=== PATIENT | female | born 1980 | race Caucasian/White ===

== ENCOUNTER 2017-11-05 19:42 | Observation (INO) ==
[2017-11-05 20:07] LABS: Bilirubin,Urine Negative (Negative); Blood,Urine Large (Negative); Clarity,Urine Turbid (Clear); Color,Urine Amber (Yellow); Glucose,Urine (UA) Normal (Normal); Ketones,Urine Negative (Negative); Leukocyte Esterase,Urine Moderate (Negative); Nitrite,Urine Positive (Negative); Protein,Urine >=300 mg/dL (Neg-Trace); Specific Gravity,Urine 1.025 (1.010-1.025); Urobilinogen,Urine Normal (Normal)
[2017-11-05] MEDS ORDERED: Ondansetron 4 MG/2 ML VIAL IVP ONE (20:14)
[2017-11-05] MEDS ORDERED: *HR* FentaNYL (PF) 100 MCG/2 ML VIAL IVP ONE (20:14)
[2017-11-05] MEDS ORDERED: Ketorolac 15 MG/ML VIAL IVP ONE (20:14)
[2017-11-05] MEDS ORDERED: 0.9 % Sodium Chloride 1,000 ML IVC ONE (20:14)
--- NOTE | 2017-11-05 20:15 | Emergency Department Note ---
Disposition Clinical Impression: Hepatic steatosis, Acute pyelonephritis, Right ovarian cyst Diabetes Qualifiers: Diabetes mellitus type: type 2 Diabetes mellitus detention insulin use: unspecified detention insulin use status Diabetes mellitus complication status: with unspecified complications Qualified Code(s): E11.8 - Type 2 diabetes mellitus with unspecified complications Sepsis Qualifiers: Sepsis type: sepsis due to unspecified organism Qualified Code(s): A41.9 - Sepsis, unspecified organism Disposition: Admitted As Inpatient Condition: Fair Referrals: Mary Rodriguez CNP [Primary Care Provider] - Nhung Mccartney [Family Provider] - Forms: ED Satisfaction Letter, Work/School Release Time of Disposition: 22:23 Abdominal Pain HPI - General Chief Complaint: ED Abdominal Pain Stated Complaint: lower back and pelvic pain Time Seen by Provider: 11/05/17 19:49 Source: patient Nursing Notes Reviewed: Yes Vital Signs Reviewed: Yes - History of Present Illness HPI Narrative: 36-year-old female history of ofr-rlnaxbs-vdyobmgwe diabetes, presents with 1 day of left flank pain radiating to her groin. Patient also has pelvic pain and dysuria. She denies vaginal bleeding or discharge, she did recently have her period. States that she has had some low-grade fevers as well, she just felt hot and sweaty. Patient denies measurable temperatures, she has had previous urinary tract infections but she denies history of kidney infections. She has mild right upper quadrant tenderness as well that started 10, left flank pain is 6 out of 10. Crampy achy in quality. Pt Subjective Complaint: abdominal pain Location: L flank Pain Severity: moderate Pain Scale: 10 Quality: cramping, aching Radiation: suprapubic Worsens with: nothing Associated symptoms: Reports: nausea, fever, dysuria. Denies: vomiting, diarrhea, chills, hematemesis, hematochezia - Related Data Home Medications Medication Instructions Recorded Confirmed Alogliptin 06/26/17 Buspirone HCl 06/26/17 Celebrex 06/26/17 Gabapentin Enacarbil 06/26/17 Nuvigil 06/26/17 Ranitidine HCl 06/26/17 metFORMIN 06/26/17 Previous Rx's Medication Instructions Recorded GuaiFENesin/Dextromethorphan 5 ml PO Q6HR PRN #120 syrup 06/26/17 [Robitussin/DM] Loratadine/Pseudophed (12 HR) 1 each PO BID #20 tab.er.12h 06/26/17 [Claritin D (12HR)] Amoxicillin [Amoxil] 500 mg PO TID #30 capsule 10/06/17 Magic Mouthwash [Magic Mouthwash 10 ml PO QID #240 ml 10/06/17 BLM] PredniSONE [Deltasone] 20 mg PO DAILY #12 tablet 10/06/17 Allergies Allergy/AdvReac Type Severity Reaction Status Date / Time No Known Allergies Allergy Verified 11/05/17 19:45 All systems ED: reviewed and negative except as stated. Review of Systems: As Per HPI Constitutional: Reports: fever. Denies: chills Eyes: Denies: eye pain ENT ED: Denies: ear pain Cardiovascular: Denies: chest pain Respiratory: Denies: cough, dyspnea Gastrointestinal: Reports: as per HPI, abdominal pain, nausea. Denies: vomiting Genitourinary: Reports: as per HPI, urgency, dysuria Musculoskeletal: Denies: back pain Integumentary: Denies: rash Neurological: Denies: headache Psychiatric: Denies: anxiety Abdominal Pain PMH - Past Medical History Medical history: Reports: diabetes, hyperlipidemia, kidney stones Female Surgical History: Reports: , other Psychiatric history: Reports: no psych history - Social History Smoking status: Former smoker Alcohol use: Reports: none Drug use: Reports: none Physical Exam Constitutional: alert and oriented, in NAD, vital signs reviewed and wnl HEENT: NCAT, sclera anicteric Neck: normal inspection, neck is supple, trachea midline Resp: normal chest inspection, CTA bilaterally, no resp distress CV: RRR, no m/g/r GI: normal inspection, Soft, mild suprapubic tenderness palpation, mild tenderness to palpation right upper quadrant negative [place] sign no guarding or rebound. Back: normal inspection, positive left CVA ttp, no tenderness to palpation Neuro: A&O3, no gross motor or sensory deficits bilaterally MSK: normal inspection, bilateral UE and LE with normal ROM Skin: No rashes, skin warm, dry, intact - General Limitations: no limitations General appearance: alert Course Course Narrative: 36-year-old female with possible pyelonephritis, given her clinical exam and cloudy urine checking renal function, also in the CT scan of her abdomen pelvis check basic labs given her liter fluid, also plan to consider admission versus discharge based on laboratory results shows no evidence of kidney failure, she is high risk given - Reevaluation(s) Reevaluation #1: Patient with evidence pyelonephritis, technically septic given that she has tachycardia, elevated white blood cell count, source of infection, treated with Levaquin IV, patient he will blood cultures and lactate as well, admission to Dr. Moran the hospitalist, for further workup and treatment given diabetes high risk factors including evidence of sepsis pyelonephritis she is hemodynamic stable with no hypotension at this time. Time: 22:22 Vital Signs Temperature 98.2 F 11/05/17 19:45 Pulse Rate 125 11/05/17 19:45 Respiratory Rate 17 11/05/17 19:45 Blood Pressure 130/88 11/05/17 19:45 O2 Sat by Pulse Oximetry 96 11/05/17 19:45 Temperature 98.2 F 11/05/17 19:45 Pulse Rate 102 11/05/17 21:17 Respiratory Rate 16 11/05/17 21:17 Blood Pressure 110/62 11/05/17 21:17 O2 Sat by Pulse Oximetry 95 11/05/17 21:17 Oxygen Delivery Oxygen Delivery Room Air Abdominal Pain - Differential Diagnosis Differential Diagnosis: Likely: acute appendicitis, diverticulitis, diverticulosis - Medical Records Medical records reviewed: Yes I reviewed the patient's medical records. - Lab Data Lab results reviewed: Yes I reviewed the patient's lab results. Result diagrams: 11/05/17 20:24 11/05/17 20:24 Lab Results 11/05/17 11/05/17 11/05/17 Range/Units 20:00 20:00 20:24 WBC 14.4 H (4.3-11.1) K/mcL RBC 4.84 (3.82-4.97) M/mcL Hgb 13.7 (11.5-15.4) g/dL Hct 42.2 (35.3-44.9) % MCV 87.2 (83.0-100.0) fL MCH 28.3 (28.0-33.3) pg MCHC 32.5 (31.6-35.5) g/dL RDW 13.2 (11.5-14.5) % Plt Count 346 (140-400) K/mcL MPV 8.7 L (9.4-12.4) fL Immature Gran % 0.4 (0-4) % Seg Neutrophils % 79.2 % Lymphocytes % 12.8 % Monocytes % 6.7 % Eosinophils % 0.8 % Basophils % 0.1 % Neutrophils # 11.4 H (1.6-8.9) K/mcL Lymphocytes # 1.8 (0.6-4.6) K/mcL Monocytes # 1.0 (0.0-1.3) K/mcL Eosinophils # 0.1 (0.0-0.6) K/mcL Basophils # 0.0 (0.0-0.2) K/mcL Sodium (136-145) mEq/L Potassium (3.5-5.1) mEq/L Chloride (98-107) mEq/L Carbon Dioxide (23-29) mEq/L BUN (6-20) mg/dL Creatinine (0.60-1.20) mg/dL Est GFR ( Amer) (> 60) Est GFR (Non-Af Amer) (> 60) BUN/Creatinine Ratio (6-26) Glucose (70-105) mg/dL Calculated Osmolality (280-300) Lactic Acid (0.5-2.2) mmol/L Calcium (8.6-10.3) mg/dL Total Bilirubin (0.3-1.0) mg/dL Direct Bilirubin (0.0-0.2) mg/dL Indirect Bilirubin (0.0-1.2) mg/dL AST (13-39) Units/L ALT (7-52) Units/L Alkaline Phosphatase (34-104) Units/L Serum Total Protein (6.4-8.9) g/dL Albumin (3.5-5.7) g/dL Globulin (2.4-3.5) g/dL Albumin/Globulin Ratio (1.1-2.2) Lipase (11-82) Units/L Urine Color [place] A (Yellow) Urine Clarity Turbid A (Clear) Urine pH 6.0 (5.0-8.0) pH Units Ur Specific [place] 1.025 (1.010-1.025) Urine Protein >=300 H (Neg-Trace) mg/dL Urine Glucose (UA) Normal (Normal) mg/dL Urine Ketones Negative (Negative) mg/dL Urine Blood Large H (Negative) Urine Nitrite Positive A (Negative) Urine Bilirubin Negative (Negative) Urine Urobilinogen Normal (Normal) mg/dL Ur Leukocyte Esterase Moderate H (Negative) Urine Microscopic RBC Present (0-3) per hpf Urine Microscopic WBC TNTC H (0-3) per hpf Ur Squamous Epith Cells Present (None-Few) per lpf Ur Renal Epithelial Cell Present (None-Few) per hpf Urine Bacteria Present (None-Few) per hpf Ur Culture Indicated? YES A (NO) Urine Test Negative (Negative) 11/05/17 11/05/17 Range/Units 20:24 21:37 WBC (4.3-11.1) K/mcL RBC (3.82-4.97) M/mcL Hgb (11.5-15.4) g/dL Hct (35.3-44.9) % MCV (83.0-100.0) fL MCH (28.0-33.3) pg MCHC (31.6-35.5) g/dL RDW (11.5-14.5) % Plt Count (140-400) K/mcL MPV (9.4-12.4) fL Immature Gran % (0-4) % Seg Neutrophils % % Lymphocytes % % Monocytes % % Eosinophils % % Basophils % % Neutrophils # (1.6-8.9) K/mcL Lymphocytes # (0.6-4.6) K/mcL Monocytes # (0.0-1.3) K/mcL Eosinophils # (0.0-0.6) K/mcL Basophils # (0.0-0.2) K/mcL Sodium 135 L (136-145) mEq/L Potassium 3.9 (3.5-5.1) mEq/L Chloride 100 (98-107) mEq/L Carbon Dioxide 28 (23-29) mEq/L BUN 14 (6-20) mg/dL Creatinine 0.79 (0.60-1.20) mg/dL Est GFR ( Amer) > 60 (> 60) Est GFR (Non-Af Amer) > 60 (> 60) BUN/Creatinine Ratio 18 (6-26) Glucose 148 H (70-105) mg/dL Calculated Osmolality 283 (280-300) Lactic Acid 1.2 (0.5-2.2) mmol/L Calcium 10.4 H (8.6-10.3) mg/dL Total Bilirubin 0.5 (0.3-1.0) mg/dL Direct Bilirubin 0.1 (0.0-0.2) mg/dL Indirect Bilirubin 0.4 (0.0-1.2) mg/dL AST 22 (13-39) Units/L ALT 40 (7-52) Units/L Alkaline Phosphatase 45 (34-104) Units/L Serum Total Protein 7.9 (6.4-8.9) g/dL Albumin 4.6 (3.5-5.7) g/dL Globulin 3.3 (2.4-3.5) g/dL Albumin/Globulin Ratio 1.4 (1.1-2.2) Lipase 17 (11-82) Units/L Urine Color (Yellow) Urine Clarity (Clear) Urine pH (5.0-8.0) pH Units Ur Specific [place] (1.010-1.025) Urine Protein (Neg-Trace) mg/dL Urine Glucose (UA) (Normal) mg/dL Urine Ketones (Negative) mg/dL Urine Blood (Negative) Urine Nitrite (Negative) Urine Bilirubin (Negative) Urine Urobilinogen (Normal) mg/dL Ur Leukocyte Esterase (Negative) Urine Microscopic RBC (0-3) per hpf Urine Microscopic WBC (0-3) per hpf Ur Squamous Epith Cells (None-Few) per lpf Ur Renal Epithelial Cell (None-Few) per hpf Urine Bacteria (None-Few) per hpf Ur Culture Indicated? (NO) Urine Test (Negative) - Radiology Data Radiology results reviewed: Yes I reviewed the patient's radiology results. Abdomen/Pelvis CT 11/05/17 20:14 IMPRESSION: 1. No acute intra-abdominal abnormality. 2. Severe hepatic steatosis. 3. Right ovarian cyst measuring 5.0 cm, likely benign. Consider dedicated ultrasound in 6-12 weeks to ensure resolution. 4. Normal appendix. D/ / 11/05/2017 21:27:17 Kelsey Pereira MD / jacinda Interpreting Provider: Kelsey Pereira MD Critical Care Time Critical Care Time: Yes Total Critical Care Time: 35 Attestation: Critical care time managing patient 35 minutes meeting septic criteria. Attestation Statement - Attestation Attestation: Patient was seen with resident physician. I reviewed the history, physical, assessment and plan, and agree with the findings. I also personally evaluated this patient and had [id number] time with this patient. 36-year-old female presents emergency Department chief complaint of left flank pain radiating down into her groin and lower abdomen. Pain started yesterday. His been getting progressively worse. Nausea without vomiting. Some mild diarrhea. Also with some fevers and chills. And burning with urination. Denies other symptoms. Says she has a history of kidney stones. She says it feels very similar to kidney stones in the past. Remainder review of systems reviewed and negative. Physical exam vital signs demonstrate tachycardia.. ENT is unremarkable. Heart regular rhythm tachycardic. Lungs clear. Abdomen mild tenderness palpation of both the left upper and lower quadrants. There is no guarding or rigidity. Patient is obese. Extremities are unremarkable. Neurologically intact. Skin no rashes and psych is normal. We will do workup for pyelonephritis and renal stones. We will get a CT scan of the abdomen and pelvis along with basic lab testing and urinalysis. Patient' s tachycardia improved with fluids. Technically she did meet septic criteria on arrival. She was found to have an elevated white blood cell count. The urine was demonstrative of infection. She did well throughout the course of her stay. However clinically she has pyelonephritis with abdominal pain elevated white cell count and positive urine. She will be started on IV antibiotics with plan for continuation of therapy as an inpatient with reevaluation. We spoke with the hospitalist service agreed to accept the patient for admission to the hospital. I agree with resident physician assessment and plan.
[2017-11-05 20:28] LABS: WBC,Urine TNTC per hpf (0-3)
[2017-11-05 20:29] LABS: Renal Epithelial Cells,Urine Present per hpf (None-Few); Squamous Epithelial Cell,Urine Present per lpf (None-Few)
[2017-11-05 20:30] LABS: Bacteria,Urine Present per hpf (None-Few); RBC,Urine Present per hpf (0-3)
[2017-11-05 20:34] LABS: Basophils % 0.1 %; Eosinophils # 0.1 K/mcL (0.0-0.6); Eosinophils % 0.8 %; Hematocrit 42.2 % (35.3-44.9); Hemoglobin 13.7 g/dL (11.5-15.4); Immature Granulocytes % 0.4 % (0-4); Lymphocytes # 1.8 K/mcL (0.6-4.6); Lymphocytes % 12.8 %; Mean Corpuscular HGB Conc 32.5 g/dL (31.6-35.5); Mean Corpuscular Hemoglobin 28.3 pg (28.0-33.3); Mean Corpuscular Volume 87.2 fL (83.0-100.0); Mean Platelet Volume 8.7 fL (9.4-12.4); Monocytes % 6.7 %; Neutrophils # 11.4 K/mcL (1.6-8.9); Platelet Count 346 K/mcL (140-400); Red Blood Count 4.84 M/mcL (3.82-4.97); Red Cell Distribution Width 13.2 % (11.5-14.5); Segmented Neutrophils % 79.2 %
[2017-11-05 20:56] LABS: Alanine Aminotransferase 40 Units/L (7-52); Albumin 4.6 g/dL (3.5-5.7); Albumin/Globulin Ratio 1.4 (1.1-2.2); Alkaline Phosphatase 45 Units/L (34-104); Aspartate Amino Transferase 22 Units/L (13-39); BUN/Creatinine Ratio 18 (6-26); Bilirubin,Direct 0.1 mg/dL (0.0-0.2); Bilirubin,Indirect 0.4 mg/dL (0.0-1.2); Bilirubin,Total 0.5 mg/dL (0.3-1.0); Blood Urea Nitrogen 14 mg/dL (6-20); Calcium 10.4 mg/dL (8.6-10.3); Carbon Dioxide 28 mEq/L (23-29); Chloride 100 mEq/L (98-107); Globulin 3.3 g/dL (2.4-3.5); Glucose 148 mg/dL (70-105); Lipase 17 Units/L (11-82); Osmolality,Calculated 283 (280-300); Potassium 3.9 mEq/L (3.5-5.1); Sodium 135 mEq/L (136-145); Total Protein 7.9 g/dL (6.4-8.9); eGFR For African Americans > 60 (> 60); eGFR For Non-African Americans > 60 (> 60)
[2017-11-05] MEDS ORDERED: Levofloxacin 750 MG/150 ML 750 MG/150 ML BAG IVPB ONE (21:13)
--- NOTE | 2017-11-05 22:53 | Internal Med History&Physical ---
Date of Encounter: 11/05/17 Time of Encounter: 10:40 Internal Medicine - H&P: HPI Admitted From: Emergency Dept Plans for Post Hospital Care: Home History of present illness: Ms. Nirav Martinez is a 36 year old female with PmHx of diabetes. Pt presents with left back pain. States as the day progressed, she noticed blood in her urine. She reports subjective fever, chills, and nausea. Denies vomiting. States her glucose have been fine. CODE STATUS: FULL. In ED WBC 14.4, hgb 13.7, hct 42.2, plt 346. Na 135, K 3.9, BUN 14, Cr 0.79. urine analysis Large blood, positive nitrite, moderate leuks, WBC TNTC, bacteria present CT abdomen and pelvis without contrast. IMPRESSION: 1. No acute intra-abdominal abnormality. 2. Severe hepatic steatosis. 3. Right ovarian cyst measuring 5.0 cm, likely benign. Consider dedicated ultrasound in 6-12 weeks to ensure resolution. 4. Normal appendix. Past Med Surg Social Fam HX - Past Medical History Medical history: diabetes, hyperlipidemia, kidney stones Additional medical history: lupus Psychiatric history: no psych history - Past Surgical History Additional surgical history: LEEPX 2, wisdom teeth, bilateral carpal tunnel release - Social History Smoking Status: Former smoker Smokeless Tobacco Status: No Alcohol use: none Drug use: none - Family History Mother Living Status: Still Living Hx Family Cancer: Yes (breast ca) Paternal Grandmother Living Status: Hx Family Cardiac Disorders: Yes Internal Medicine - H&P: Meds Alogliptin Benzoate [Alogliptin] 6.25 mg PO DAILY 11/05/17 [History] Buspirone HCl [Buspar] 10 mg PO TID PRN 11/05/17 [History] GlipiZIDE [Glipizide ER] 10 mg PO DAILY 11/05/17 [History] Metformin HCl [Glucophage] 1,000 mg PO BID 11/05/17 [History] Ranitidine HCl [Acid [employer] Receiver] 150 mg PO BID 11/05/17 [History] 3 Allergy/AdvReac Type Severity Reaction Status Date / Time No Known Allergies Allergy Verified 11/05/17 19:45 All Systems PM: A 10-system review of systems was performed and is negative for pertinent findings except as documented above in the HPI. - Constitutional Vitals: Temp Pulse Resp BP Pulse Ox 98.2 F 102 16 110/62 95 11/05/17 19:45 11/05/17 21:17 11/05/17 21:17 11/05/17 21:17 11/05/17 21:17 General appearance: Present: A&O X 3, no acute distress - Head Head exam: Present: atraumatic, normocephalic - Eye Eye exam: Present: PERRL, conjuntiva pink, sclera anicteric Pupils: Present: PERRL - Neck Neck exam general surgery: Present: supple, trachea midline. Absent: lymphadenopathy - Respiratory Respiratory exam: Present: CTAB. Absent: accessory muscle use, rales, rhonchi, wheezes - Cardiovascular Cardiovascular exam: Present: RRR, +S1, +S2. Absent: diastolic murmur, gallop, rubs, systolic murmur - GI/Abdominal GI/Abdominal exam: Present: normal bowel sounds, soft, no peritoneal signs. Absent: distended, tenderness - Extremities Exam Extremities exam: Present: warm, radial pulses palpable and symmetrical. Absent : calf tenderness, cyanotic, pedal edema - Neurological Exam Neurological exam: Present: CN II-XII intact, oriented X3, no focal deficits. Absent: pronater drift, facial droop, speech deficit - Skin Skin exam: Present: dry, intact Internal Med - H&P Results - Labs CBC & Chem 7: 11/05/17 20:24 11/05/17 20:24 Labs: Short CBC 11/05/17 Range/Units 20:24 WBC 14.4 H (4.3-11.1) K/mcL Hgb 13.7 (11.5-15.4) g/dL Hct 42.2 (35.3-44.9) % Plt Count 346 (140-400) K/mcL Neutrophils # 11.4 H (1.6-8.9) K/mcL BMP 11/05/17 20:24 Sodium 135 L Potassium 3.9 Chloride 100 Carbon Dioxide 28 BUN 14 Creatinine 0.79 Glucose 148 H Calcium 10.4 H Liver Function 11/05/17 Range/Units 20:24 Total Bilirubin 0.5 (0.3-1.0) mg/dL Direct Bilirubin 0.1 (0.0-0.2) mg/dL AST 22 (13-39) Units/L ALT 40 (7-52) Units/L Alkaline Phosphatase 45 (34-104) Units/L Albumin 4.6 (3.5-5.7) g/dL Urine 11/05/17 Range/Units 20:00 Urine Color [place] A (Yellow) Urine Clarity Turbid A (Clear) Urine pH 6.0 (5.0-8.0) pH Units Ur Specific [place] 1.025 (1.010-1.025) Urine Protein >=300 H (Neg-Trace) mg/dL Urine Glucose (UA) Normal (Normal) mg/dL - Impressions ITS Impressions Abdomen/Pelvis CT 11/05/17 20:14 IMPRESSION: 1. No acute intra-abdominal abnormality. 2. Severe hepatic steatosis. 3. Right ovarian cyst measuring 5.0 cm, likely benign. Consider dedicated ultrasound in 6-12 weeks to ensure resolution. 4. Normal appendix. D/ / 11/05/2017 21:27:17 Kelsey Pereira MD / [facility] Interpreting Provider: Kelsey Pereira MD - Assessment and plan (1) Acute pyelonephritis Current Visit: Yes Status: Acute Assessment and plan: Will place on Rocephin. Will send urine for culture. (2) Dehydration Current Visit: Yes Status: Acute Assessment and plan: Will place on IVF. (3) Type II diabetes mellitus Current Visit: Yes Status: Acute Assessment and plan: Glipizide, Metformin, and Alogliptin Qualifiers: Qualified Code(s): E11.9 - Type 2 diabetes mellitus without complications (4) Hepatic steatosis Current Visit: Yes Status: Acute Assessment and plan: Severe hepatic steatosis. Pt may benefit from evaluation by GI out pt. - Time Spent With Patient Total time spent is greater than 50% in coordination of care (as documented) at patient's floor/unit and/or counseling patient: 25 - 35 minutes
[2017-11-05] MEDS ORDERED: Naloxone 0.4 MG/ML INJ IVP PRN (23:25)
[2017-11-05] MEDS ORDERED: Acetaminophen 325 MG TABLET PO PRN (23:25)
[2017-11-05] MEDS: cefTRIAXone 2,000 MG in Water for inj. (sterile) 20 ML 20 ML IVP SCH (23:59)
[2017-11-05] MEDS: *HR* HYDROcodone/Acet 5/325 mg TABLET PO PRN (23:59)
[2017-11-05] MEDS: 0.9 % Sodium Chloride 1,000 ML IVC SCH (23:59)
[2017-11-06] MEDS: *HR* Enoxaparin 40 MG/0.4 ML SYRINGE SQ SCH (05:12)
[2017-11-06] MEDS ORDERED: *HR* Metformin 500 MG TABLET PO SCH (08:00)
[2017-11-06] MEDS: *HR* HYDROcodone/Acet 5/325 mg TABLET PO PRN ×2 (08:02→17:33)
[2017-11-06] MEDS: Famotidine 20 MG TABLET PO SCH ×2 (08:03→20:58)
[2017-11-06 08:40] LABS: Chol/HDL Ratio 4.6 (0-4.9)
[2017-11-06 08:41] LABS: BUN/Creatinine Ratio 23 (6-26); Blood Urea Nitrogen 15 mg/dL (6-20); Calcium 9.2 mg/dL (8.6-10.3); Carbon Dioxide 24 mEq/L (23-29); Chloride 103 mEq/L (98-107); Glucose 189 mg/dL (70-105); Osmolality,Calculated 288 (280-300); Potassium 3.9 mEq/L (3.5-5.1); Sodium 136 mEq/L (136-145); eGFR For African Americans > 60 (> 60); eGFR For Non-African Americans > 60 (> 60)
[2017-11-06] MEDS ORDERED: ALOGLIPTIN BENZOATE 6.25 MG PO SCH (09:00)
[2017-11-06] MEDS ORDERED: *HR* GlipiZIDE XL (24 HR) 10 MG TABLET PO SCH (09:00)
[2017-11-06 09:23] LABS: Basophils % 0.2 %; Eosinophils # 0.1 K/mcL (0.0-0.6); Eosinophils % 0.5 %; Hematocrit 35.9 % (35.3-44.9); Immature Granulocytes % 0.6 % (0-4); Lymphocytes # 1.4 K/mcL (0.6-4.6); Lymphocytes % 12.5 %; Mean Corpuscular HGB Conc 32.6 g/dL (31.6-35.5); Mean Corpuscular Hemoglobin 28.5 pg (28.0-33.3); Mean Corpuscular Volume 87.6 fL (83.0-100.0); Mean Platelet Volume 9.1 fL (9.4-12.4); Monocytes # 0.6 K/mcL (0.0-1.3); Monocytes % 5.5 %; Neutrophils # 8.7 K/mcL (1.6-8.9); Platelet Count 280 K/mcL (140-400); Red Cell Distribution Width 13.3 % (11.5-14.5); Segmented Neutrophils % 80.7 %
[2017-11-06 09:40] LABS: BUN/Creatinine Ratio 23 (6-26); Blood Urea Nitrogen 14 mg/dL (6-20); Calcium 9.2 mg/dL (8.6-10.3); Carbon Dioxide 24 mEq/L (23-29); Chloride 103 mEq/L (98-107); Glucose 190 mg/dL (70-105); Osmolality,Calculated 286 (280-300); Potassium 3.9 mEq/L (3.5-5.1); Sodium 135 mEq/L (136-145); eGFR For African Americans > 60 (> 60); eGFR For Non-African Americans > 60 (> 60)
[2017-11-06 09:42] LABS: Hemoglobin 11.7 g/dL (11.5-15.4)
[2017-11-06] MEDS ORDERED: D5% in Water 1,000 ML IVC PRN (10:06)
[2017-11-06] MEDS ORDERED: *HR* Dextrose 50 % in Water (Syg) 50 ML SYRINGE IVP PRN (10:06)
[2017-11-06] MEDS ORDERED: Dextrose Gel 15 GM/37.5 ML TUBE PO PRN ×2 (10:06)
[2017-11-06] MEDS: 0.9 % Sodium Chloride 1,000 ML IVC SCH (10:09)
--- NOTE | 2017-11-06 11:04 | Internal Med Progress Note ---
Date of Encounter: 11/06/17 Time of Encounter: 11:01 - Assessment and plan (1) Sepsis Current Visit: Yes Status: Acute Assessment and plan: SIRS criteria leukocytosis, tachycardia Leukocytosis improving. HR still slightly tachycardic Continue antibiotics Follow-up blood cultures Maybe discharge today/tomorrow if remains stable and blood cultures negative Qualifiers: Sepsis type: sepsis due to unspecified organism Qualified Code(s): A41.9 - Sepsis, unspecified organism (2) Acute pyelonephritis Current Visit: Yes Status: Acute Assessment and plan: Plan as above. (3) Dehydration Current Visit: Yes Status: Acute (4) Diabetes Current Visit: Yes Status: Acute Qualifiers: Diabetes mellitus type: type 2 Diabetes mellitus emt intermediate insulin use: unspecified nursing home insulin use status Diabetes mellitus complication status : with unspecified complications Qualified Code(s): E11.8 - Type 2 diabetes mellitus with unspecified complications (5) Right ovarian cyst Current Visit: Yes Status: Acute (6) Type II diabetes mellitus Current Visit: Yes Status: Acute Assessment and plan: Hold PO meds and start ISS Start ADA diet Qualifiers: Qualified Code(s): E11.9 - Type 2 diabetes mellitus without complications - Time Spent With Patient Total time spent is greater than 50% in coordination of care (as documented) at patient's floor/unit and/or counseling patient: - Subjective Interval history: Patient states she feels great Pain decreased significantly Denies fevers/chills, n/v, dysuria - Constitutional Vitals: Temp Pulse Resp BP Pulse Ox 99.2 F 99 14 116/79 93 11/06/17 08:02 11/06/17 08:02 11/06/17 08:02 11/06/17 08:02 11/06/17 08:02 General appearance: Present: A&O X 3, no acute distress - Head Head exam: Present: atraumatic, normocephalic - Eye Eye exam: Present: PERRL, conjuntiva pink, sclera anicteric Pupils: Present: PERRL - Neck Neck exam general surgery: Present: supple, trachea midline. Absent: lymphadenopathy - Respiratory Respiratory exam: Present: CTAB. Absent: accessory muscle use, rales, rhonchi, wheezes - Cardiovascular Cardiovascular exam: Present: RRR, +S1, +S2. Absent: diastolic murmur, gallop, rubs, systolic murmur - GI/Abdominal GI/Abdominal exam: Present: normal bowel sounds, soft, no peritoneal signs. Absent: distended, tenderness - Extremities Exam Extremities exam: Present: warm, radial pulses palpable and symmetrical. Absent : calf tenderness, cyanotic, pedal edema - Neurological Exam Neurological exam: Present: CN II-XII intact, oriented X3, no focal deficits. Absent: pronater drift, facial droop, speech deficit - Skin Skin exam: Present: dry, intact Internal Medicine: Result - Labs CBC & Chem 7: 11/06/17 08:42 11/06/17 08:42 Labs: Short CBC 11/06/17 Range/Units 08:42 WBC 10.8 (4.3-11.1) K/mcL Hgb 11.7 D (11.5-15.4) g/dL Hct 35.9 (35.3-44.9) % Plt Count 280 (140-400) K/mcL Neutrophils # 8.7 (1.6-8.9) K/mcL [facility] 11/06/17 11/06/17 07:15 08:42 Sodium 136 135 L Potassium 3.9 3.9 Chloride 103 103 Carbon Dioxide 24 24 BUN 15 14 Creatinine 0.65 0.62 Glucose 189 H 190 H Calcium 9.2 9.2 Consult Discharge Plan - Plan Referrals: Mary Rodriguez CNP [Primary Care Provider] - Nhung Mccartney [Family Provider] -
[2017-11-06] MEDS ORDERED: Insulin LISPRO 300 UNITS/3 ML VIAL SQ SCH ×2 (11:30→21:00)
[2017-11-06] MEDS: Insulin LISPRO 300 UNITS/3 ML VIAL SQ SCH ×2 (12:44→17:25)
[2017-11-06] MEDS: cefTRIAXone 2,000 MG in Water for inj. (sterile) 20 ML 20 ML IVP SCH (23:18)
[2017-11-07] MEDS: *HR* HYDROcodone/Acet 5/325 mg TABLET PO PRN (03:38)
[2017-11-07] MEDS: *HR* Enoxaparin 40 MG/0.4 ML SYRINGE SQ SCH (05:12)
[2017-11-07 05:26] LABS: Basophils % 0.2 %; Eosinophils # 0.1 K/mcL (0.0-0.6); Eosinophils % 1.2 %; Hematocrit 35.7 % (35.3-44.9); Hemoglobin 11.4 g/dL (11.5-15.4); Immature Granulocytes % 0.7 % (0-4); Lymphocytes # 1.9 K/mcL (0.6-4.6); Lymphocytes % 20.8 %; Mean Corpuscular HGB Conc 31.9 g/dL (31.6-35.5); Mean Corpuscular Hemoglobin 28.1 pg (28.0-33.3); Mean Corpuscular Volume 87.9 fL (83.0-100.0); Mean Platelet Volume 8.9 fL (9.4-12.4); Monocytes # 0.6 K/mcL (0.0-1.3); Monocytes % 6.8 %; Neutrophils # 6.3 K/mcL (1.6-8.9); Platelet Count 283 K/mcL (140-400); Red Blood Count 4.06 M/mcL (3.82-4.97); Segmented Neutrophils % 70.3 %
[2017-11-07 05:54] LABS: BUN/Creatinine Ratio 17 (6-26); Blood Urea Nitrogen 10 mg/dL (6-20); Calcium 9.1 mg/dL (8.6-10.3); Carbon Dioxide 24 mEq/L (23-29); Chloride 103 mEq/L (98-107); Glucose 224 mg/dL (70-105); Osmolality,Calculated 286 (280-300); Potassium 3.7 mEq/L (3.5-5.1); Sodium 135 mEq/L (136-145); eGFR For African Americans > 60 (> 60); eGFR For Non-African Americans > 60 (> 60)
[2017-11-07 06:51] VITALS: BP 120/83
[2017-11-07] MEDS: Famotidine 20 MG TABLET PO SCH (08:18)
[2017-11-07] MEDS: Insulin LISPRO 300 UNITS/3 ML VIAL SQ SCH (08:18)
--- NOTE | 2017-11-07 09:08 | Discharge Summary ---
- NOTES TO OUTPATIENT PROVIDER Notes to Outpatient Provider: Urine cultures grew GNR, sensitivities pending. Repeat ultrasound, right ovarian cyst was seen recs follow-up in 6-12 weeks. Orders not resulted at time of discharge: Pending orders 11/08/17 04:00 BMP [Basic Metabolic Panel] AM 0400 Complete Blood Count [HEME] AM 0400 Date of Encounter: 11/07/17 Time of Encounter: 09:05 - Discharge Diagnosis (1) Sepsis Priority: Primary Status: Resolved Qualifiers: Sepsis type: sepsis due to unspecified organism Qualified Code(s): A41.9 - Sepsis, unspecified organism (2) Acute pyelonephritis Priority: Secondary Status: Acute (3) Dehydration Priority: Secondary Status: Acute (4) Diabetes Priority: Secondary Status: Acute Qualifiers: Diabetes mellitus type: type 2 Diabetes mellitus watermelon harvesting supervisor insulin use: unspecified assisted insulin use status Diabetes mellitus complication status : with unspecified complications Qualified Code(s): E11.8 - Type 2 diabetes mellitus with unspecified complications (5) Right ovarian cyst Priority: Secondary Status: Acute (6) Type II diabetes mellitus Priority: Secondary Status: Acute Qualifiers: Qualified Code(s): E11.9 - Type 2 diabetes mellitus without complications Hospital course: Ms. Nirav Martinez is a 36 year old female with PmHx of diabetes. Pt presents with left back pain. States as the day progressed, she noticed blood in her urine. She reports subjective fever, chills, and nausea. Denies vomiting. States her glucose have been fine. In ED she had WBC 14k, with tachcardia. UA was consistent with UTI. She was tachycardic and admitted for meeting sepsis criteria. Blood cultures and urine cultures obtained. Urine cultures pre bales for gram negative rods. She was started on Rocephin, tachycardia and leukocytosis resolved. Patient clinically was well. She was discharged home in stable condition to complete 11 days of Keflex to total 14 days of treatment. Follow-up ultrasound for right ovarian cyst in 6-12 weeks. - Time Spent with Patient Total time spent providing and/or coordinating discharge services: - Discharge Medications Home Medications: Alogliptin Benzoate [Alogliptin] 6.25 mg PO DAILY 11/05/17 [History] Buspirone HCl [Buspar] 10 mg PO TID PRN 11/05/17 [History] Metformin HCl [Glucophage] 1,000 mg PO BID 11/05/17 [History] Ranitidine HCl [Acid Med Surg Nurse] 150 mg PO BID 11/05/17 [History] Armodafinil 250 mg PO DAILY 11/07/17 [History] Cyclobenzaprine [Flexeril] 10 mg PO BID 11/07/17 [History] Fenofibrate Nanocrystallized [Triglide] 160 mg PO DAILY 11/07/17 [History] Gabapentin [Neurontin] 600 mg PO TID 11/07/17 [History] GlipiZIDE [Glipizide Xl] 5 mg PO DAILY 11/07/17 [History] Ibuprofen [Ibu] 600 mg PO Q8H PRN #15 tablet 11/07/17 [Rx] Sertraline [Zoloft] 200 mg PO DAILY 11/07/17 [History] Spironolactone [Aldactone] 50 mg PO DAILY 11/07/17 [History] cephALEXin [Keflex] 500 mg PO TID #33 capsule 11/07/17 [Rx] Allergies/Adverse Reactions: 3 Allergy/AdvReac Type Severity Reaction Status Date / Time No Known Allergies Allergy Verified 11/05/17 19:45 Date of admission: 11/05/17 22:48 Primary care physician: Mary Rodriguez CNP Discharging clinician: Darian Olson - Constitutional Vitals: Temp Pulse Resp BP Pulse Ox 98.9 F 92 14 120/83 97 11/07/17 06:46 11/07/17 06:46 11/07/17 06:46 11/07/17 06:46 11/07/17 06:46 General appearance: Present: A&O X 3, no acute distress - Head Head exam: Present: atraumatic, normocephalic - Eye Eye exam: Present: PERRL, conjuntiva pink, sclera anicteric Pupils: Present: PERRL - Neck Neck exam general surgery: Present: supple, trachea midline. Absent: lymphadenopathy - Respiratory Respiratory exam: Present: CTAB. Absent: accessory muscle use, rales, rhonchi, wheezes - Cardiovascular Cardiovascular exam: Present: RRR, +S1, +S2. Absent: diastolic murmur, gallop, rubs, systolic murmur - GI/Abdominal GI/Abdominal exam: Present: normal bowel sounds, soft, no peritoneal signs. Absent: distended, tenderness - Extremities Exam Extremities exam: Present: warm, radial pulses palpable and symmetrical. Absent : calf tenderness, cyanotic, pedal edema - Neurological Exam Neurological exam: Present: CN II-XII intact, oriented X3, no focal deficits. Absent: pronater drift, facial droop, speech deficit - Skin Skin exam: Present: dry, intact - Patient Status Disposition: Home, Self-Care Condition: Fair Functional capacity at discharge: independent ambulation Overall status at discharge: patient is back to baseline - Discharge Instructions Follow Up With: Mary Rodriguez CNP [Primary Care Provider] - Nhung Mccartney [Family Provider] - - Diet and Activity Activity: increase activity as tolerated Diet: diabetic diet
== END 2017-11-07 10:47 | disposition home or self-care (01) ==
LOC: 3ANU 19:42 → EMEROO 19:42 → 3ANU 23:07
PROVIDERS: ADMIT Student in an Organized Health Care Education/Training Program; ATTEND Internal Medicine